=== PATIENT | male | born 1985 | race Caucasian/White ===

== ENCOUNTER 2016-06-26 17:03 | Emergency (ER) | payer MEDICAID ==
[~2016-06-26] VITALS: Ht 177.8 cm; Wt 102.0 kg
[~2016-06-26 17:03] MED LIST: AMOX875 PO; CIPR0.3S RIGHT EAR
[2016-06-26 17:06] VITALS: BP 132/91; PULSE 102; RESP 16; TEMP 98.3; O2SAT 97
[2016-06-26] MEDS ORDERED: methylPREDNISolone SOD SUCC 125 MG/2 ML VIAL IM ONE (17:30)
[2016-06-26] MEDS: RESP: ALBUTEROL 2.5 MG/IPRATROPIUM 0.5 MG NEB (SCH) INH (17:34)
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
--- NOTE | 2016-06-26 18:09 | RADHPO ---
EXAM DATE/TIME: 06/26/2016 17:53 [facility] COMPARISON: CHEST PA & LAT, October 28, 2015, 12:16. INDICATIONS : Cough, short of breath, chest pains MEDICAL HISTORY : None. SURGICAL HISTORY : None. ENCOUNTER: Initial ACUITY: 4 - 6 days PAIN SCORE: 6/10 LOCATION: Bilateral chest FINDINGS: PA and lateral views of the chest demonstrate the lungs to be symmetrically aerated without evidence of mass, infiltrate or effusion. The cardiomediastinal contours are unremarkable. Osseous structure s are intact. CONCLUSION: No acute disease. Ayaz Woodall MD on June 26, 2016 at 18:07 Board Certified Radiologist. This report was verified electronically.
[2016-06-26] MEDS ORDERED: BENZ100 PO (18:32)
[2016-06-26] MEDS ORDERED: ALBUAER3 INH (18:32)
[2016-06-26] MEDS ORDERED: PRED20 PO (18:32)
== END 2016-06-26 18:59 | disposition home or self-care (01) ==
LOC: PHEFT 17:03
DX: J20.9 Acute bronchitis, unspecified (principal); F17.210 Nicotine dependence, cigarettes, uncomplicated; F10.21 Alcohol dependence, in remission
CPT/HCPCS: 71020; 87804; 94640; 94664; 96372; 99283; J2930

== ENCOUNTER 2017-04-20 16:12 | Emergency (ER) | payer MEDICAID ==
[~2017-04-20] VITALS: Ht 180.3 cm; Wt 99.2 kg
[~2017-04-20 16:12] MED LIST changes: +ALBUAER3 INH; -AMOX875 PO; +BENZ100 PO; -CIPR0.3S RIGHT EAR; +PRED20 PO
[2017-04-20 16:45] VITALS: BP 158/80; PULSE 102; RESP 18; TEMP 99.2; O2SAT 98
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
[2017-04-20] MEDS ORDERED: ONDANSETRON ODT 4 MG TAB PO ONE (17:30)
[2017-04-20] MEDS ORDERED: predniSONE 20 MG TAB PO ONE (17:30)
[2017-04-20 17:33] VITALS: BP 115/75; PULSE 110; RESP 18; O2SAT 94
[2017-04-20 17:35] VITALS: RESP 18; O2SAT 97
[2017-04-20] MEDS ORDERED: ALBU.5I NEB (17:36)
[2017-04-20] MEDS: RESP: ALBUTEROL 2.5 MG/IPRATROPIUM 0.5 MG NEB (SCH) INH (17:41)
[2017-04-20] MEDS ORDERED: ZITHTAB PO (18:07)
[2017-04-20] MEDS ORDERED: VENTAER INH (18:07)
[2017-04-20] MEDS ORDERED: PRED-503 PO (18:07)
[2017-04-20] MEDS ORDERED: ALBU0.08 NEB (18:07)
[2017-04-20 18:33] VITALS: BP 134/64; PULSE 120; RESP 18; O2SAT 94
[2017-04-21] MEDS ORDERED: CIPR0.3S LEFT EAR (10:24)
== END 2017-04-20 19:01 | disposition home or self-care (01) ==
LOC: PHED 16:12
DX: J20.9 Acute bronchitis, unspecified (principal); B34.9 Viral infection, unspecified; F17.200 Nicotine dependence, unspecified, uncomplicated
CPT/HCPCS: 94640; 94664; 99284; J7512

== ENCOUNTER 2017-04-21 09:28 | Emergency (ER) | payer MEDICAID ==
[~2017-04-21] VITALS: Ht 180.3 cm; Wt 98.0 kg
[~2017-04-21 09:28] MED LIST changes: +ALBU.5I NEB; +ALBU0.08 NEB; +PRED-503 PO; +VENTAER INH; +ZITHTAB PO
[2017-04-21 09:41] VITALS: BP 146/62; PULSE 84; RESP 17; TEMP 98.1; O2SAT 96
[2017-04-21] MEDS ORDERED: CIPR0.3S LEFT EAR (10:24)
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
== END 2017-04-21 10:32 | disposition home or self-care (01) ==
LOC: PHEFT 09:28
DX: H60.92 Unspecified otitis externa, left ear (principal); F17.200 Nicotine dependence, unspecified, uncomplicated
CPT/HCPCS: 99283

== ENCOUNTER 2017-07-14 15:16 | Emergency (ER) | payer MEDICAID ==
[~2017-07-14] VITALS: Ht 180.3 cm; Wt 103.9 kg
[~2017-07-14 15:16] MED LIST changes: -BENZ100 PO; +CIPR0.3S LEFT EAR; -PRED20 PO
[2017-07-14 15:45] VITALS: BP 129/72; PULSE 86; RESP 18; TEMP 97.9; O2SAT 95
[2017-07-14] MEDS ORDERED: MAGN500T2 PO (17:21)
[2017-07-14] MEDS ORDERED: MULTTAB4 PO (17:21)
[2017-07-14] MEDS ORDERED: VITA500T4 PO (17:21)
[2017-07-14] MEDS ORDERED: POTA10CA PO (17:21)
[2017-07-14] MEDS ORDERED: PRED20 PO (17:47)
[2017-07-14] MEDS ORDERED: VENTAER INH (17:47)
[2017-07-14] MEDS ORDERED: AZIT250T3 PO (17:47)
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
== END 2017-07-14 17:54 | disposition home or self-care (01) ==
LOC: PHED 15:16 → PHEFT 17:54
DX: J20.9 Acute bronchitis, unspecified (principal); J45.901 Unspecified asthma with (acute) exacerbation; J44.9 Chronic obstructive pulmonary disease, unspecified; F17.210 Nicotine dependence, cigarettes, uncomplicated; Z88.5 Allergy status to narcotic agent; Z79.899 Other long term (current) drug therapy
CPT/HCPCS: 99284